=== PATIENT | female | born 1985 | race Caucasian/White ===

== ENCOUNTER 2018-01-31 16:15 | Emergency (ER) | payer OTHER ==
--- NOTE | 2018-01-31 17:03 | RAD ---
INDICATION: Dyspnea. COMPARISON: There are no relevant prior studies available for comparison. TECHNIQUE: Dual-energy PA views of the chest were obtained. FINDINGS: The heart is within normal limits in size. Mediastinal and hilar contours appear within normal limits. The lungs are clear. No pleural effusion is present. IMPRESSION: NO EVIDENCE FOR ACTIVE CARDIOPULMONARY DISEASE.
[2018-01-31 18:09] LABS: ABS Basophils 0 10^3/ul (0-0.2); ABS Eosinophils 0.1 10^3/ul (0-0.6); ABS Lymphocytes 1.3 10^3/ul (1.0-4.8); ABS Monocytes 0.5 10^3/ul (0-0.8); ABS Nucleated RBC 0 10^3/ul; Eosinophil % 1.4 % (0-6); Hematocrit 43 % (35-47); Lymphocyte % 19.2 % (25-47); Mean Corpuscular HGB Conc 35 g/dl (31-36); Mean Corpuscular Hemoglobin 31 pg (27-31); Mean Corpuscular Volume 89 fL (80-97); Mean Platelet Volume 7.6 um3 (7.4-10.4); Nucleated Red Blood Cells % 0; Platelet Count 303 10^3/ul (150-450); Red Blood Count 4.84 10^6/ul (4.00-5.40); Red Cell Distribution Width 13 % (10.5-15); White Blood Count 6.9 10^3/ul (3.5-10.8)
[2018-01-31 18:28] LABS: EGFR Non-African American 95.1 (>60)
[2018-01-31] MEDS ORDERED: Ondansetron INJ* 2 MG/ML VIAL IV ONE (20:46)
[2018-01-31] MEDS ORDERED: NS 0.9% 1000 ML* 1,000 ML IV ONE (20:46)
[2018-01-31] MEDS ORDERED: Ketorolac INJ* 30 MG/ML 1 ML VIAL IV PUSH ONE (20:46)
--- NOTE | 2018-01-31 21:23 | ED ---
Neurological HPI - HPI Summary HPI Summary: Patient is a 32 y/o F w/ c/o visual blind spot at left eye and left sided numbness onsetting a few hours ago. Patient states visual blind spot onset first , then left had numbness which gradually spread to her entire LUE and her face. She notes that she has PMHx of migraines, states that she has had this blind spot previously with migraine. She went to today and was referred to ED. She notes numbness and blind spot have resolved but reports HEADLEY, nausea, and body aches in room. She also notes slight SOB and chest pain with deep breaths. PMHx of anxiety. She denies fever, chills, ear pain, sore throat, neck pain, ABD pain , back pain, dysuria, hematuria, blood in the stool, edema, bruising, rashes, and depression. On triage, pain is rated 2/10, nothing is noted to aggravate/ alleviate Sx. Home medications and allergies are reviewed. - History of Current Complaint Chief Complaint: EDNeurologicalDeficit Stated Complaint: LT ARM/NECK/FACE NUMBNESS Hx Obtained From: Patient Onset/Duration: Started hours ago - visual blind spot at left eye and left sided numbness, Still Present - HEADLEY, nausea, and body aches in room. She also notes slight SOB and chest pain with deep breaths, Resolved - visual blind spot at left eye and left sided numbness Timing: Constant Current Severity: Mild - 3/10 Neurological Deficit Location: Facial - numbness, LUE - numbness Pain Intensity: 3 Pain Scale Used: 0-10 Numeric - 3/10 Character: Numbness/Tingling, Other: - visual blind spot at left eye Aggravating: Nothing Alleviating: Nothing Associated Signs and Symptoms: Positive: Visual Changes - visual blind spot at left eye, Headache, Numbness - left sided numbness, Chest Pain, Shortness of Breath, Anxiety - PMHx. Negative: Fever, Neck Pain/Stiffness - Allergy/Home Medications Allergies/Adverse Reactions: Allergies Allergy/AdvReac Type Severity Reaction Status Date / Time Sulfa (Sulfonamide Allergy Hives Verified 01/31/18 20:50 Antibiotics) PMH/Surg Hx/FS Hx/Imm Hx Respiratory History: Reports: Hx Asthma - SPORTS INDUCED CHILD, NONE IN RECENT YEARS Sensory History: Reports: Hx Contacts or Glasses - CONTACTS, WILL WEAR GLASSES DAY OF SURGERY Opthamlomology History: Reports: Hx Contacts or Glasses - CONTACTS, WILL WEAR GLASSES DAY OF SURGERY Neurological History: Reports: Hx Migraine - Hx OF, NO IN FEW MONTHS, RELIEVED WITH REST Psychiatric History: Reports: Hx Anxiety - Surgical History Surgery Procedure, Year, and Place: 2006 [place]IL[address]OMY [place]. 2008 WISDOM TEETH [place] Hx Anesthesia Reactions: No - Immunization History Date of Tetanus Vaccine: unk Date of Influenza Vaccine: fall 2016 Infectious Disease History: No Infectious Disease History: Denies: Traveled Outside the [place] in Last 30 Days - Family History Known Family History: Negative: Blood Disorder - Social History Alcohol Use: Weekly Substance Use Type: Reports: None Smoking Status (MU): Never Smoked Tobacco Review of Systems Positive: Other - body aches . Negative: Fever, Chills Positive: Other - visual blind spot at left eye Negative: Sore Throat, Ear Ache Positive: Chest Pain - with deep breaths Positive: Shortness Of Breath Positive: Nausea. Negative: Abdominal Pain Positive: other - NEGATIVE: blood in stool . Negative: dysuria, hematuria Positive: Other - NEGATIVE: neck/back pain . Negative: Edema Negative: Rash, Bruising Positive: Headache, Numbness - left sided Negative: Depressed All Other Systems Reviewed And Are Negative: No Physical Exam - Summary Physical Exam Summary: Appearance: Alert, conversive, nontoxic appearing Skin: Warm, dry, no mottling, no rashes, no contusions HEENT: EOMI, PERRL, moist mucous membranes Neck: No masses on the neck, supple Respiratory: Clear to auscultation, breath sounds present, no rales, no rhonchi , no wheezes Cardiovascular: RRR, pulses are symmetrical in both lower and upper extremities Abdomen: Soft, non-tender Bowel Sounds: Present Musculoskeletal: No CVA tenderness, no obvious deformity, moving all extremities in a grossly normal manner Neurological: A&Ox3, CN II-XII Intact, moving all extremities symmetrically; GCS 15 Psychiatric: Normal affect and mood Triage Information Reviewed: Yes Vital Signs On Initial Exam: Initial Vitals Temp Pulse Resp BP Pulse Ox 97.4 F 67 17 134/96 98 01/31/18 16:22 01/31/18 16:22 01/31/18 16:22 01/31/18 16:22 01/31/18 16:22 Vital Signs Reviewed: Yes Diagnostics - Vital Signs Vital Signs Temp Pulse Resp BP Pulse Ox 01/31/18 19:00 98.0 F 98 16 137/89 100 01/31/18 16:22 97.4 F 67 17 134/96 98 - Laboratory Lab Results: Lab Results 01/31/18 01/31/18 01/31/18 Range/Units 18:02 18:02 18:02 WBC 6.9 (3.5-10.8) 10^3/ul RBC 4.84 (4.00-5.40) 10^6/ul Hgb 15.0 (12.0-16.0) g/dl Hct 43 (35-47) % MCV 89 (80-97) fL MCH 31 (27-31) pg MCHC 35 (31-36) g/dl RDW 13 (10.5-15) % Plt Count 303 (150-450) 10^3/ul MPV 7.6 (7.4-10.4) um3 Neut % (Auto) 71.7 (38-83) % Lymph % (Auto) 19.2 L (25-47) % [place] % (Auto) 7.4 H (0-7) % Eos % (Auto) 1.4 (0-6) % Baso % (Auto) 0.3 (0-2) % Absolute Neuts (auto) 5.0 (1.5-7.7) 10^3/ul Absolute Lymphs (auto) 1.3 (1.0-4.8) 10^3/ul Absolute Monos (auto) 0.5 (0-0.8) 10^3/ul Absolute Eos (auto) 0.1 (0-0.6) 10^3/ul Absolute Basos (auto) 0 (0-0.2) 10^3/ul Absolute Nucleated RBC 0 10^3/ul Nucleated RBC % 0 D-Dimer, Quantitative < 200 (Less Than 230) ng/mL Sodium 137 (135-145) mmol/L Potassium 4.3 (3.5-5.0) mmol/L Chloride 101 (101-111) mmol/L Carbon Dioxide 27 (22-32) mmol/L Anion Gap 9 (2-11) mmol/L BUN 11 (6-24) mg/dL Creatinine 0.72 (0.51-0.95) mg/dL Est GFR ( Amer) 115.1 (>60) Est GFR (Non-Af Amer) 95.1 (>60) BUN/Creatinine Ratio 15.3 (8-20) Glucose 105 H (70-100) mg/dL Calcium 10.0 (8.6-10.3) mg/dL Total Bilirubin 0.60 (0.2-1.0) mg/dL AST 21 (13-39) U/L ALT 18 (7-52) U/L Alkaline Phosphatase 45 (34-104) U/L Troponin I 0.00 (<0.04) ng/mL B-Natriuretic Peptide ( - 100) pg/mL Total Protein 7.5 (6.4-8.9) g/dL Albumin 5.0 (3.2-5.2) g/dL Globulin 2.5 (2-4) g/dL Albumin/Globulin Ratio 2.0 (1-3) TSH 0.84 (0.34-5.60) mcIU/mL Beta HCG, Quant < 0.60 mIU/mL 01/31/18 Range/Units 18:02 WBC (3.5-10.8) 10^3/ul RBC (4.00-5.40) 10^6/ul Hgb (12.0-16.0) g/dl Hct (35-47) % MCV (80-97) fL MCH (27-31) pg MCHC (31-36) g/dl RDW (10.5-15) % Plt Count (150-450) 10^3/ul MPV (7.4-10.4) um3 Neut % (Auto) (38-83) % Lymph % (Auto) (25-47) % [place] % (Auto) (0-7) % Eos % (Auto) (0-6) % Baso % (Auto) (0-2) % Absolute Neuts (auto) (1.5-7.7) 10^3/ul Absolute Lymphs (auto) (1.0-4.8) 10^3/ul Absolute Monos (auto) (0-0.8) 10^3/ul Absolute Eos (auto) (0-0.6) 10^3/ul Absolute Basos (auto) (0-0.2) 10^3/ul Absolute Nucleated RBC 10^3/ul Nucleated RBC % D-Dimer, Quantitative (Less Than 230) ng/mL Sodium (135-145) mmol/L Potassium (3.5-5.0) mmol/L Chloride (101-111) mmol/L Carbon Dioxide (22-32) mmol/L Anion Gap (2-11) mmol/L BUN (6-24) mg/dL Creatinine (0.51-0.95) mg/dL Est GFR ( Amer) (>60) Est GFR (Non-Af Amer) (>60) BUN/Creatinine Ratio (8-20) Glucose (70-100) mg/dL Calcium (8.6-10.3) mg/dL Total Bilirubin (0.2-1.0) mg/dL AST (13-39) U/L ALT (7-52) U/L Alkaline Phosphatase (34-104) U/L Troponin I (<0.04) ng/mL B-Natriuretic Peptide 17 ( - 100) pg/mL Total Protein (6.4-8.9) g/dL Albumin (3.2-5.2) g/dL Globulin (2-4) g/dL Albumin/Globulin Ratio (1-3) TSH (0.34-5.60) mcIU/mL Beta HCG, Quant mIU/mL Result Diagrams: 01/31/18 18:02 01/31/18 18:02 Lab Statement: Any lab studies that have been ordered have been reviewed, and results considered in the medical decision making process. - Radiology CXR Radiology Interpretation Completed By: Radiologist Summary of Radiographic Findings: no evidence for active cardiopulmonary disease , this report was reviewed by ED physician. - EKG 2109 Cardiac Rate: NL - rate of 70 bpm EKG Rhythm: Sinus Rhythm - normal QRS, normal QTc, normal axis, normal ST/T wave Summary of EKG Findings: normal QRS, normal QTc, normal axis, normal ST/T wave Re-Evaluation - Re-Evaluation First Eval Re-Evaluation Time: 21:30 Comment: Patient states she feels better, she will be discharged to home and instructed to follow up with PCP. She is agreeable with this plan. Course/Dx - Course Course Of Treatment: Patient is a 32 y/o F w/ c/o visual blind spot at left eye and left sided numbness onsetting a few hours ago. Patient states visual blind spot onset first, then left had numbness which gradually spread to her entire LUE and her face. She notes that she has PMHx of migraines, states that she has had this blind spot previously with migraine. She went to today and was referred to ED. She notes numbness and blind spot have resolved but reports HEADLEY, nausea, and body aches in room. She also notes slight SOB and chest pain with deep breaths. PMHx of anxiety. Physical exam was normal. During ED course, patient received fluids, Zofran 4 mg and toradol 30 mg IV. CXR showed no evidence for active cardiopulmonary disease, Labs showed Beta HCG < 0.60, TSH 0.84, trop 0, BNP 17, glucose 105, d-dimer < 200. EKG showed sinus rhythm with rate of 70 BPM, normal QRS, normal QTc, normal axis, normal ST/T wave. 2130 - Patient states she feels better, she will be discharged to home and instructed to follow up with PCP. She is agreeable with this plan. Dx of migraine. - Diagnoses Provider Diagnoses: Migraine Discharge - Sign-Out/Discharge Documenting (check all that apply): Patient Departure - discharge - Discharge Plan Condition: Stable Disposition: HOME Patient Education Materials: Acute Headache (DC) Referrals: Renata Conner NP [Primary Care Provider] - Additional Instructions: follow up with your primary care physician. return if worse or any new symptoms. Take tylenol and motrin at home for headache. avoid excessive caffeine. keep a routine. routines help decrease the number of migraines. go to bed at the same hour. get plenty of sleep. - Billing Disposition and Condition Condition: STABLE Disposition: Home - Attestation Statements Document Initiated by Scribe: Yes Documenting Scribe: Shivam Goldstein Provider For Whom Nanda is Documenting (Include Credential): Elana Gudino MD Scribe Attestation: Shivam Berry , scribed for Elana Gudino MD on 02/03/18 at 1821. Scribe Documentation Reviewed: Yes Provider Attestation: The documentation as recorded by the Shivam puga accurately reflects the service I personally performed and the decisions made by me, Elana Gudino MD
[2018-01-31 22:32] VITALS: BP 124/83
== END 2018-01-31 22:30 | disposition home or self-care (01) ==
LOC: ED 16:15
DX: G43.909 Migraine, unspecified, not intractable, without status migrainosus (principal); R20.0 Anesthesia of skin; R11.0 Nausea; H53.8 Other visual disturbances
CPT/HCPCS: 36415; 71045; 80053; 83880; 84443; 84484; 84702; 85025; 85379; 93005; 96374; 96375; 99283; J1885; J2405